=== PATIENT | male | born 1950 | race Caucasian/White ===

== ENCOUNTER 2025-06-11 10:10 | Outpatient (OUT) | payer MEDICARE, SELFPAY ==
--- OUTSIDE RECORDS SUMMARY | 2025-06-03 10:00 | XMS_ITS ---
Author Organization [facility] [place] Address [address] [place] [address] Care Team Providers Care Money Room Teller Name Role Phone Taz Nelson Primary Care Provider [phone] Allergies Allergen (clinical drug ingredient) Drug/Non Drug Allergy documented on EMR Reaction Allergy Type Onset Date Status PenicillinUnknownDrug AllergyActive REASON FOR VISIT WATER MANGLE TENDER-NO MEDS Medications Medication SIG (Take, Route, Frequency, Duration) Notes Start Date End Date Status valACYclovir HCl 1 GM Oral; Duration: 14 Days ActivevalACYclovir HCl 1 GMTAKE ONE TABLET BY MOUTH THREE TIMES A DAY FOR 14 DAYS Oral; Duration: 14 DaysActiveBrimonidine Tartrate 0.2 %Ophthalmic; Duration: 75 QgjoGhvogvCpdujzeh-Zyuthqpgd-Yqsykook 3.5-67983-2.1Ophthalmic; Duration: 50 DaysActiveRocklatan 0.02-0.005 %PLACE 1 DROP INTO LEFT EYE EVERYDAY AT BEDTIME DIRECTED Ophthalmic; Duration: 75 DaysActive Social History Tobacco Use: Social History Observation Description Date Details (start date - stop date) Former Smoker NA - NA Tobacco Control (Standard) Question Answer Notes Tobacco use: Former smoker How long has it been since you last smoked?Greater than 10 yearsAUDIT-C (Standard) Question Answer Notes Did you have a drink containing alcohol in the p ast year? No Efhcjw9TxtdwvrmbtcmqzYndhonyb Problems Problem Type SNOMED Code ICD Code Onset Dates Problem Status W/U Status Risk Notes Problem Glaucoma (04431073) Glaucoma (H40.9) ActiveconfirmedProblemHerpes infection (55499428)Herpes infection (B00.9)Active confirmed Vital Signs Weight 157.0 lbs 06/03/2025 Height 68 in 06/03/2025 Blood pressure systolic 130 mm Hg 06/03/20 25 Blood pressure diastolic 80 mm Hg 025 BMI 23.87 kg/m2 06/03/2025 Encounters Encounter Location Date Provider Diagnosis [facility] [address] [facility] [place] [address] 06/03/2025 Taz Nelson Herpes infection B00 .9 Assessments Encounter Date Diagnosis (ICD Code) Assessment Notes Treatment Notes Treatment Clinical Notes Section Notes 06/03/2025 Herpes infection (ICD-10 - B00.9 ) Plan Of Treatment Pending Test Test Name Order Date HEMOGLOBIN A1C (GLYCO) 06/03/2025 LIPID PANEL (CHOL/TRIG/HDL/LDL) 06/03/20 URIC ACID 06/03/2025 THYROID PANEL (T4/TSH/FREE T3) PSA, SCREENING 06/03/2025 CMP (COMP MET [place]) w/eGFR CKD-EPI 2024 CBC WITH DIFF 06/03/2025 Progress Notes * ROSA MARIA LEVYB:1950 (75 yo M)Acc No.[id number]:06/03/2025 New Patient Patient: ALEKSEY DUNHAM :?Jason Nelson ([facility]), MDDOB:1950???Age: 75 Y???Sex:MaleDate:06/03/2025Phone:[phone]:[address], [address], [place], [place]Zrmlq In:03:00 PM ESTCheck Out:03:30 PM EST Subjective: * Chief Complaints: * N P-NO MEDS * HPI: ???General:? no insomnina doing well overall Possibel gluten intolerance. * ROS: ???EENT:?hearing changes?denies.?visual changes?denies. non-healing mouth sores?denies.?swollen glands or neck lumps?denies.?hoarseness?denies.?sore throat?denies.?difficulty swallowing?denies.?nose bleeds?denies.?nasal congestion?denies.?ear ache?denies.?ear discharge denies.?ringing in ears?denies.?light sensitivity?denies.?eye pain?denies.?blurring?denies.?eye irritation?denies.?double vision?denies. vision loss?denies.?General/Constitutional:?Sweats:?Denies.?Fatigue?denies.?Sleep proble ms?denies.?Anorexia?denies.?Malaise?denies.?Weight loss?denies. Fatigue or Weakness?denies.?Fever or Chills?denies.?Cardiovascular:?Shortness of Breath w/lying flat?denies.?Lightheadedne ss/dizziness?denies.?Chest tightness/ heavy pressure?denies.?Swelling of legs, a nkles, or feet?denies.?Waking up with shortness of breath?denies.?Chest pain&#16 0;denies.?Palpitations?denies.?Weight gain?denies.?Respiratory:?Chronic or frequent cough?denies.?Coughing up blood&#1 60;denies.?Difficulty breathing?denies.?Productive cough?denies.?Snoring&#1 60;denies.?Shortness of breath that awakens from sleep (PND)?denies.?Chest pain? denies.?Sputum production?denies.?Wheezing?denies.?Musculoskeletal:?Joint pain?denies.?Joint Fluid?denies.?Backpain?denies.?Knee pain?denies.?Neck pain?denies.?Joint Stiffness?denies.?Muscle cramps?denies.?Weakness of muscles?denies.?Arthritis?denies.?Muscle aches?denies.?Pain in shoulder(s)?denies.?Swollen joints?denies.? * Active Problem List H40.9 Glaucoma Modified On:06/03/2025W/U Status:fqpnlesvxZ79.9Herpes infection Modified On:06/03/2025W/U Status:confirmed * Medical History: * Surgical History: C olonoscopy- Polyp Removal * Hospitalization/Major Diagno stic Procedure: D enies Past Hospitalization * Family History: F ather: , Prostate Cancer, Ulcers. M other: , Dementia. * Social History: ???Tobacco Use:?Tobacco Control (Standard)?Tobacco use:?Former smoker ?How long has it been since you last smoked? Greater than 10 years ???Drug/Alcohol:?AUDIT-C (Standard)?Did you have a drink containing alcohol in the past year??No ?Points?0 ?Interpretation?Negative * Medications: T akingBrimonidine Tartrate 0.2 % Solution Ophthalmic Rovfcghu-Entsufbvw-Eoymvfzx 3.5-68410-2.1 Suspension Ophthalmic Rocklatan(Netarsudil-Latanoprost) 0.02-0.005 % Solution PLACE 1 DROP INTO LEFT EYE EVERYDAY AT BEDTIME DIRECTED Ophthalmic valACYclovir HCl 1 GM Tablet Oral valACYclovir HCl 1 GM Tablet TAKE ONE TABLET BY MOUTH THREE TIMES A DAY FOR 14 DAYS Oral Medication List reviewed and reconciled with the patientTaking Brimonidine Tartrate 0.2 % Solution Ophthalmic Taking Gceqdzxr-Iykauprpu-Rauazfic 3.5-55467-7.1 Suspension Ophthalmic Taking Rocklatan(Netarsudil-Latanoprost) 0.02-0.005 % Solution PLACE 1 DROP INTO LEFT EYE EVERYDAY AT BEDTIME DIRECTED Ophthalmic Taking valACYclovir HCl 1 GM Tablet Oral Taking valACYclovir HCl 1 GM Tablet TAKE ONE TABLET BY MOUTH THREE TIMES A DAY FOR 14 DAYS Oral Medication List reviewed and reconciled with the patient * Allergies: P travis[Allergies Verified] Objective: * Vitals: W t:157.0lbs, Ht: 68 in, BP:130/80mm Hg, BMI:23.87Index, Ht-cm: 172.72 cm, Wt-k.21 kg. * Examination: ???Physical Exam: ?GENERAL:?well developed, well nourished, in no acute distress.?HEAD:?normocephalic/atraumatic.?EYES:?pupils equal, round and reactive to light, conjunctivae and sclerae normal.?EARS:?no deformity or lesion of external ear, canals and TM appear normal bilaterally, TM's intact, not inflamed with normal light reflex, hearing grossly normal to conversational speech.?NOSE:?no deformity, discharge, inflammation, or lesions. ?MOUTH:?mucous membranes moist, normal oropharynx and posterior pharynx without lesions or exudates, tongue normal, dentition normal.?NECK:?neck supple, no masses or palpable cervical nodes, trachea midline, thyroid without nodules, masses, tenderness, or enlargement.?CHEST:?no chest wall deformity, no chest wall tenderness. ?LUNGS:?normal respiratory effort and clear to auscultation, no wheezes, rales, or rhonchi, good air exchange.?CARDIO:?regular rate and rhythm, normal S1 and S2, nor murmur, rub, or gallop.?PULSES:?normal capillary refill.?ABDOMEN:?soft, non-distended, non-tender, no masses.?MUSCULOSKELETAL:?no deformity or scoliosis noted, normal range of motion, joints normal, no erythema, edema, effusion, or ecchymosis.?EXTREMITY:?no clubbing, cyanosis, edema, or deformity withnormal ROM in both upper and lower bilateral extremities.?NEUROLOGIC:?grossly normal.?SKIN:?no rashes, ulcerations, or suspicious lesions.?LYMPH NODES:?no cervical adenopathy, nodes normal.?MENTAL STATUS:?alert and oriented x3, normal mood and affect.? Assessment: * Assessment: 1.?Herpes infection - B00.9 (Primary)??? Plan: * Treatment: ?LAB: HEMOGLOBIN A1C (GLYCO) ?LAB: LIPID PANEL (CHOL/TRIG/HDL/LDL) ?LAB: URIC ACID ?LAB: THYROID PANEL (T4/TSH/FREE T3) ?LAB: PSA, SCREENING ?LAB: CMP (COMP MET [place]) w/eGFR CKD-EPI ?LAB: CBC WITH DIFF * Procedure Codes: * * Sign off status: CompletedVisit Status:?CHK (Check Out) true * Provider: Radha Nelson ([facility])MD Date: 1 08/03/2024 Generated for Printing/[employer]itting on:?06/11/2025 10:14 AM EST History and Physical Notes * HPI (History of Present Illness) CategorySub-CategoryDetailNotesCategory NotesGeneral no insomnina doing well overall Possibel gluten intolerance Examination CategorySub-CategoryDetailNotesCategory NotesPhysical ExamGENERAL:well developed, well nourished, in no acute distressHEAD:normocephalic/atraumatic EYES:pupils equal, round and reactive to light, conjunctivae and sclerae normal EARS:no deformity or lesion of external ear, canals and TM appear normal bilaterally, TM's intact, not inflamed with normal light reflex, hearing grossly normal to conversational speechNOSE:no deformity, discharge, inflammation, or lesionsMOUTH:mucous membranes moist, normal oropharynx and posterior pharynx without lesions or exudates, tonguenormal, dentition normalNECK:neck supple, no masses or palpable cervical nodes, trachea midline, thyroid without nodules, masses, tenderness, or enlargementCHEST:no chest wall deformity, no chest wall tendernessLUNGS:normal respiratory effort and clear to auscultation, no wheezes, rales, or rhonchi, good air exchangeCARDIO:regular rate and rhythm, normal S1 and S2, nor murmur, rub, or gallopPULSES:normal capillary refillABDOMEN:soft, non-distended, non-tender, no massesRECTAL:MUSCULOSKELETAL:no deformity or scoliosis noted, normal range of motion, joints normal, no erythema, edema, effusion, or ecchymosisEXTREMITY:no clubbing, cyanosis, edema, or deformity with normal ROM in both upper and lower bilateral extremitiesNEUROLOGIC:grossly normalSKIN:no rashes, ulcerations, or suspicious lesionsLYMPH NODES:no cervical adenopathy, nodes normalMENTAL STATUS:alert and oriented x3, normal mood and affect
--- OUTSIDE RECORDS SUMMARY | 2025-06-11 10:15 | XMS_ITS | Clinical Summary ---
Author Organization [facility] Address [address] [place], [place] [id number] Care Team Providers Care Office Clerk Routine Name Role Phone Unavailable Primary Care Provider Unavailabl e Allergies Active AllergyReactionsCriticalityNoted DateCommentsPenicillin VUnknown 03/15/2021 Medications MedicationSigDispense QuantityRefillsLast FilledStart DateEnd DateStatus dorzolamide-timolol (COSOPT) 22.3-6.8 mg/mL ophthalmic solution Use 1 drop in the left eye two times a day.Active brimonidine (ALPHAGAN) 0.2 % ophthalmic solution Use 1 drop in the left eye two times a day.Active ROCKLATAN 0.02-0.005 % ophthalmic solution Use 1 drop in the left eye daily at bedtime.5Active coenzyme Q10 (COENZYME Q-10) 100 mg cap capsule Take 100 mg by mouth once daily.Active ubidecarenone (COENZYME Q10, BULK, MISC) Take 1 tablet by mouth once daily.Active XYECVZHQ-SBAZYJIND-ELRYRCQL 3.5 MG/ML-10,000 UNIT/ML-0.1% EYE DROPS Use 1 drop in the left eye four times daily. 5 mL 5Active sodium chloride (BRITTANY 128) 5 % ophthalmic solution Use 1 drop in both eyes four times daily. 30 mL 5Active sodium chloride (BRITTANY 128) 5 % ophthalmic ointment Use 1 application in both eyes daily at bedtime. 3.5 g 5Active Active Problems No known active problems Encounters DateTypeDepartmentCare CemxUrpdcchghaf12/18/2025 8:30 AM EDTOffice Visit OPHT Ophthalmology [address] [place] [id number] Savanah Lara MD Idiopathic corneal edema, bilateral (Primary Dx); Stromal keratitis, left04/07/2025 3:52 AM EDT - 04/07/2025 1:[facility] [address] [place], [place] [id number] Dale Kemp MD Bhatt, Saurin, MD left eye concern Discharge Disposition: Home04/07/2025Ophth Exam Ophthalmology [address] [place] [id number] Gina Sepulveda MD 04/06/2025Travelfrom Last 3 Months Social History Tobacco UseTypesPacks/DayYears UsedDateSmoking Tobacco: NeverSmokeless Tobacco: Never Tobacco Cessation:Counseling Given: Not Answered Alcohol UseStandard Drinks/WeekCommentsNever0 (1 standard drink = 0.6 oz pure alcohol)AUDIT-CAnswerDate RecordedQ1: How often do you have a drink containing alcohol?Never04/07/2025Q2: How many drinks containing alcohol do you have on a typical day when you are drinking?Patient does not drink04/07/2025Q3: How often do you have six or more drinks on one occasion?Never04/07/2025rea Deprivation IndexAnswerDate RecordedNational Score (1-100), lower number is lower risk61 04/07/2025State Score (1-10), lower number is lower cszl701Data from: https://www.neighborhoodatlas.medicine.[facility].edu/. Last address used for sphz[address]id[address]04/07/2025Sex and Gender InformationValueDate RecordedSex Assigned at BirthNot on fileLegal IviCxsw5904/06/2025 6:22 PM EDTGender Identity Not on fileSexual OrientationNot on file Last Filed Vital Signs Vital SignReadingTime TakenCommentsBlood Lbsvtifj520/8904/07/2025 4:12 AM EDT Lhdlw906504/07/2025 4:12 AM GNZTedsagvrksa88.6 ??C (97.9 ??F)04/07/2025 12:16 AM EDTRespiratory Unmt139504/07/2025 4:12 AM EDTOxygen Gswpgyvtrg753%04/07/2025 4:12 AM EDTInhaled Oxygen Concentration--Nzurct19.1 kg (170 lb)04/07/2025 12:16 AM EDTHeight--Body Mass Index-- Plan of Treatment Health MaintenanceDue DateLast DoneCommentsAnxiety Tfamicdkd89/04/1967Depression Qawmvzylg80/04/1967Hepatitis C Lnpmflvcl34/04/1967Diabetes Xnttkmesf44/04/1994 Shingrix Vaccine (1 of 2)1999Advance Directive Wcygqpdinx59/01/2025 Medicare Advantage Annual Wellness Visit5Covid-19 Vaccine ( season)503/11/2023, 03/21/2023, 01/01/2021, Additional history exists DTaP,Tdap,Td Vaccine (2 - Td or Tdap)neumococcal Vaccine: 50+Mzdovgqzo13/25/2020, 04/01/2016RSV GaocygsGbicmzvge94/25/2023Influenza ZtljxfzJvbmbahgz73/18/2025, 03/08/2024, 03/29/2023, Additional history exists Procedures Procedure NamePriorityDate/TimeAssociated DiagnosisCommentsSLIT LAMP PHOTOS OU (BOTH EYES)Bfrkqea8904/07/2025 10:07 AM EDT Stromal keratitis, left BSCAN OU (BOTH EYES)Qseiuto4004/07/2025 9:34 AM EDT Stromal keratitis, left HERPES SIMPLEX TYPE 1 AND 2 GIWFXT9904/07/2025 8:06 AM EDT from Last 3 Months Results * SLIT LAMP PHOTOS OU (BOTH EYES) (04/07/2025 10:07 AM EDT)Anatomical Region LateralityModalityOther Narrative 04/07/2025 5:59 PM EDT Date of Procedure 04/07/2025. School Nurse Information Supervisor Rubber Covering: Michael. Start time: 9:36 AM. Stop time: 10:07 AM. Notes Bilateral corneal edema, inferonasal marginal infiltrate with deep KNV in left eye Authorizing ProviderResult TypeResult StatusShmartha Lara MDOPHTHALMOLOGYFinal Result * BSCAN OU (BOTH EYES) (04/07/2025 9:34 AM EDT)Anatomical RegionLaterality ModalityOther Narrative 04/07/2025 5:48 PM EDT Date of Procedure 04/07/2025. School Nurse Information EDWIN Conway 04/07/2025 9:32 AM . Notes B Scan OU Moderate to dense clumped mobile opacities with PVD OU Moderate to dense subhyaloid opacities OD<OS No retina or choroidal detachment OU Mild optic nerve cupping OU Authorizing ProviderResult TypeResult Sara Lara MDOPHTHALMOLOGYFinal Result * HERPES SIMPLEX TYPE 1 AND 2 IG (04/07/2025 8:06 AM EDT)ComponentValueRef Range Test MethodAnalysis TimePerformed AtPathologist SignatureHSV IgG 1 Qualitative YyyxdslvUgnsphdv37/18/2025 11:32 AM [facility] Comment:No evidence of past history of HSV-1 infection. Negative result cannot exclude HSV-1 infection if the specimen collected 3-4 weeks after a primary episode of HSV-1 infection. Early institution of antiviral agents may delay or abrogate specific humoral response.HSV IgG 2 QualitativeNegativeNegative 04/07/2025 11:32 AM [facility] LABComment:No evidence of past history of HSV-2 infection. Negative result cannot exclude HSV-2 infection if the specimen collected 4-6 weeks after a primary episode of HSV-2 infection. Early institution of antiviral agents may delay or abrogate specific humoral response.Specimen (Source)Anatomical Location / Laterality Collection Method / VolumeCollection TimeReceived TimeBloodBLOOD SPECIMEN / UnknownVenipuncture / Tjsiftp7904/07/2025 8:06 AM EDT04/07/2025 8:22 AM EDT Narrative Authorizing ProviderResult TypeResult Evelyn David MDLABORATORYFinal ResultPerforming OrganizationAddressCity/State/ZIP CodePhone Number [facility] [address] [address], [place] from Last 3 Months Insurance
--- OUTSIDE RECORDS SUMMARY | 2025-06-11 10:15 | XMS_ITS | Patient Health Record ---
Author Organization [facility] [place] Address [address] [place] [address] Care Team Providers Care Sodium Methylate Operator Name Role Phone Taz Nelson Primary Care Provider Allergies Allergen (clinical drug ingredient) Drug/Non Drug Allergy documented on EMR Reaction Allergy Type Onset Date Status PenicillinUnknownDrug AllergyActive Reason For Referral No Information Medications Medication SIG (Take, Route, Frequency, Duration) Notes Start Date End Date Status valACYclovir HCl 1 GM Oral; Duration: 14 Days ActivevalACYclovir HCl 1 GMTAKE ONE TABLET BY MOUTH THREE TIMES A DAY FOR 14 DAYS Oral; Duration: 14 DaysActiveBrimonidine Tartrate 0.2 %Ophthalmic; Duration: 75 HyijOmowhmGgaeyiqa-Dnfuexrls-Kwpufgza 3.5-86166-3.1Ophthalmic; Duration: 50 DaysActiveRocklatan 0.02-0.005 %PLACE 1 DROP [...] alcohol in the p ast year? No Yhwpyp7VtotywzwjcznjgRczpjecu Problems Problem Type SNOMED Code ICD Code Onset Dates Problem Status W/U Status Risk Notes Problem Glaucoma (34875606) Glaucoma (H40.9) ActiveconfirmedProblemHerpes infection (56347284)Herpes infection (B00.9)Active confirmed Vital Signs Blood pressure diastolic 80 mm Hg 06/03/2025 Isijai80 in06/03/2025lood pressure umwzisnh003 mm Hg11/14/5264Iamdrl849.0 lbs 06/03/2025BMI23.87 kg/m206/03/2025 Encounters Encounter Location Date Provider Diagnosis [facility] [address] [place] [address] 06/03/2025 Taz Nelson Herpes infection B00 .9 Assessments Encounter Date Diagnosis (ICD Code) Assessment Notes Treatment Notes Treatment Clinical Notes Section Notes 06/03/2025 Herpes infection (ICD-10 - B00.9 ) Plan Of Treatment Pending Test Test Name Order Date HEMOGLOBIN A1C (GLYCO) 06/03/2025 LIPID PANEL (CHOL/TRIG/HDL/LDL) 06/03/20 25 URIC ACID 06/03/2025 THYROID PANEL (T4/TSH/FREE T3) 5 PSA, SCREENING 06/03/2025 CMP (COMP MET [place]) w/eGFR CKD-EPI 2024 CBC WITH DIFF 06/03/2025 Insurance Providers Payer Name Payer Address Payer Phone Subscriber Number Group Number Insured Name Patient Relationship to Insured Coverage Start Date Coverage End Date [employer] MEDICARE ADV PLAN [address] [address] [place] [phone] [id number] Miya LEVY - patient is the insured Medical (General) History Medical History History ICD Code Glaucoma H40.9 Surgical History Surgery Date(Month/Year) Colonoscopy- Polyp Removal
--- OUTSIDE RECORDS SUMMARY | 2025-06-11 10:15 | XMS_ITS | Clinical Summary ---
Author Organization [facility] Address [address] [place] [address] Care Team Providers Care Curing Room Supervisor Name Role Phone Phys, Self-Refer Or No Pcp/Referring Primary Car e Provider Unavailable Wesly Silva MD Unavailable [phone] Allergies Active AllergyReactionsCriticalityNoted DateCommentsPenicillin VUnknown 03/15/2021 Medications MedicationSigDispense QuantityRefillsLast FilledStart DateEnd DateStatus coenzyme Q10 100 mg capsule Take 100 mg by mouth once daily.Active jqfyzmvrapep-ayv-dh-co Q10 (aquADEKs) 100-350-5 mcg-mcg-mg chewable tablet Chew 1 tablet and swallow once daily.Active dorzolamide-timoloL (COSOPT) 22.3-6.8 mg/mL ophthalmic solution Place 1 drop in the right eye three times daily. 10 mL ctive Additional Information Patient not taking.Reported on 04/18/2023 RHOPRESSA 0.02 % ophthalmic soution Place 1 drop in the right eye at bedtime. 5 mL ctive Additional Information Patient not taking.Reported on 04/18/2023 sodium chloride (BRITTANY 128) 2 % ophthalmic solution Place 1 drop in the left eye three times daily. 15 mL ctive prednisoLONE acetate (PRED FORTE) 1 % ophthalmic suspension Place 1 drop in the right eye four times daily. 10 mL ctive ofloxacin (OCUFLOX) 0.3 % ophthalmic solution Place 1 drop in the right eye four times daily. 5 mL ctive ofloxacin (OCUFLOX) 0.3 % ophthalmic solution Place 1 drop in the right eye four times daily. 5 mL 109/ctive atropine (ISOPTO ATROPINE) 1 % ophthalmic solution Place 1 drop in the right eye two times daily. 5 mL 110/ctive latanoprost (XALATAN) 0.005 % ophthalmic solution Place 1 drop in the left eye at bedtime. 7.5 mL 310/ctive prednisoLONE acetate (PRED FORTE) 1 % ophthalmic suspension Place 1 drop in the left eye four times daily. 10 mL 310/ctive brimonidine (ALPHAGAN) 0.2 % ophthalmic solution Place 1 drop in the left eye three times daily. 30 mL 310/ctive Active Problems ProblemNoted DateDiagnosed ZlosChewfpwl35/13/2023 Family History Medical HistoryRelationNameCommentsCancerFatherAlzheimer's diseaseMother CataractsMotherThyroid diseaseMotherAnesth problemsNeg HxDeep vein thrombosisNeg HxPulmonary embolismNeg HxRelationNameStatusCommentsFatherMother Social History Tobacco UseTypesPacks/DayYears UsedDateSmoking Tobacco: YkxqqcBjvwskjkcp7076062 - 1980Smokeless Tobacco: Never Tobacco Cessation:Counseling Given: Not Answered Alcohol UseStandard Drinks/WeekCommentsNot Currently0 (1 standard drink = 0.6 oz pure alcohol)Sex and Gender InformationValueDate RecordedSex Assigned at Not on fileLegal DfwOhna90/01/2022 4:15 PM EDTGender IdentityNot on fileSexual OrientationNot on file Last Filed Vital Signs Vital SignReadingTime TakenCommentsBlood Eohpckcv332/5609 12:20 PM EDT Lmund203404/17/2023 12:20 PM CFCKutlyneoctt11.5 ??C (97.7 ??F)04/17/2023 11:51 AM EDTRespiratory Msmp407604/17/2023 12:20 PM EDTOxygen Xokpbmarrl52%04/17/2023 12:20 PM EDTInhaled Oxygen Concentration--Fcrwfo40.8 kg (165 lb)04/17/2023 9:21 AM EDT Krgajf393.6 cm (5' 6 )04/17/2023 9:21 AM EDTBody Mass Index26.6309/ 9:21 AM EDT Plan of Treatment Health MaintenanceDue DateLast DoneCommentsHepatitis C Jebhisidl1950 Pneumococcal Vaccines 50years + (1 of 1 - PCV)1999Zoster Recombinant Vaccines (1 of 2)1999Respiratory Syncytial Virus (RSV) or ages 60 years and older (1 - 1-dose 75+ series)2024OVID-19 Vaccine (1 - 2024- season)2025Influenza Vaccine (#1)2025DTaP,Tdap,and Td Vaccines (2 - Td or Tdap)espiratory Syncytial Virus (RSV) ages 0 thru 19 monthsAged OutNo longer eligible based on patient's age to complete this topic Medical Devices ImplantedTypeAreaManufacturerDevice IdentifierShelf Expiration DateModel / Serial / LotGraft, Allograft Scleral Patch Tutoplast .5 X .8 Cm - [id number] Implanted:Qty: 1 on 04/17/2023 by Esthela Middleton MD at [facility] OphthyRight: EyeRTI SURGICAL M01//[id number] / [id number] / Implant, Ahmed Clearpath Glaucoma Drainage 250mm - [id number] Implanted:Qty: 1 on 04/17/2023 [facility] EyeNEW WORLD M04//[id number] / [id number] / [id number] Insurance Care Teams Team MemberRelationshipSpecialtyStart DateEnd Date Phys, Self-Refer Or No Pcp/Referring PCP - Eeiolcc80/7/22 Wesly Silva MD [address] [place] [address] [address] [place] [address] Referring NrlzlreyiBzoabqevhayue87/7/22
[2025-06-11 10:41] LABS: Hematocrit 43.6 % (42.0-54.0); Hemoglobin 14.8 g/dL (14.0-18.0); Immature Granulocytes Abs Auto 0.01 10^3/uL (0.00-0.03); Immature Granulocytes Pct Auto 0.2 % (0.0-0.5); Lymphocytes Absolute Auto 1.4 10^3/uL (1.2-3.8); Mean Corpuscular HGB Conc 33.9 g/dL (29.9-35.2); Mean Corpuscular Hemoglobin 32.5 pg (25.9-34.0); Mean Corpuscular Volume 95.6 fL (80.0-94.0); Platelet Count 165 10^3/uL (150-450); Red Blood Count 4.56 10^6/uL (4.70-6.10); White Blood Count 4.1 10^3/uL (4.0-11.0)
[2025-06-11 11:39] LABS: Alanine Aminotransferase 18 U/L (16-63); Albumin Globulin Ratio 1.1; Albumin Level 4.0 g/dL (3.4-5.0); Alkaline Phosphatase 113 U/L (46-116); Anion Gap 10.6; Aspartate Amino Transferase 19 U/L (15-37); Blood Urea Nitrogen 17.0 mg/dL (7.0-18.0); Calcium 9.1 mg/dL (8.5-10.1); Carbon Dioxide 30.4 mmol/L (21.0-32.0); Chloride 104 mmol/L (98-107); Cholesterol 144 mg/dL (<=200); Estimated GFR (African America >60 (>=60 mL/min/1.73m^2); Estimated GFR (Non-African Ame >60 (>=60 mL/min/1.73m^2); Free T3 1.94 pg/mL (2.18-3.98); Globulin 3.6 g/dL; Glucose 89 mg/dL (74-106); HDL Cholesterol 44 mg/dL (40-60); Potassium 4.0 mmol/L (3.5-5.1); Sodium 141 mmol/L (136-145); Thyroid Stimulating Hormone 6.390 uIU/mL (0.358-3.740); Total Protein 7.6 g/dL (6.4-8.2); Triglycerides 34 mg/dL (<=150); Uric Acid 4.3 mg/dL (3.5-7.2); VLDL CHOLESTEROL 6.8 mg/dL
== END 2025-06-11 10:11 | disposition home or self-care (01) ==
LOC: LAB 10:10
PROVIDERS: PCP Family Medicine; Visit Provider Family Medicine
DX: E78.5 Hyperlipidemia, unspecified (principal); Z12.5 Encounter for screening for malignant neoplasm of prostate; R73.09 Other abnormal glucose; M25.50 Pain in unspecified joint; E03.9 Hypothyroidism, unspecified; I10 Essential (primary) hypertension; D64.9 Anemia, unspecified
CPT/HCPCS: 36415; 80053; 80061; 83036; 84436; 84443; 84481; 84550; 85025; G0103

== ENCOUNTER 2025-06-28 12:57 | Outpatient (RCR) | payer MEDICARE, SELFPAY | END 2025-07-20 23:59 | disposition home or self-care (01) | LOC: HEMC 12:57 | PROVIDERS: PCP Family Medicine; Visit Provider Internal Medicine Hematology & Oncology | DX: C61 Malignant neoplasm of prostate (principal); M19.90 Unspecified osteoarthritis, unspecified site | CPT/HCPCS: G0463 ==

== ENCOUNTER 2025-07-04 15:52 | Outpatient (OUT) | payer MEDICARE, SELFPAY ==
--- OUTSIDE RECORDS SUMMARY | 2025-07-04 16:00 | XMS_ITS | Clinical Summary ---
Author Organization [facility] Address [address] [place], [place] [address] Care Team Providers Care Popcorn Attendant Name Role Phone Unavailable Primary Care Provider [...] Take 1 tablet by mouth once daily.Active WLBAVPHS-YAQGSYRAJ-PTQODYLG 3.5 MG/ML-10,000 UNIT/ML-0.1% EYE DROPS Use 1 [...] Problems No known active problems Encounters DateTypeDepartmentCare LqxrLzjvwztmafp07/18/2025 8:30 AM EDTOffice Visit OPHT Ophthalmology [address] [id number] Savanah Lara MD Idiopathic corneal edema, bilateral (Primary Dx); Stromal keratitis, left04/07/2025 3:52 AM EDT - 04/07/2025 1:[address] [facility] [address] [place], [place] [id number] Dale Kemp MD Bhatt, Saurin, MD left eye concern Discharge Disposition: Home04/07/2025Ophth Exam Ophthalmology [address] [id number] Gina Sepulveda MD 04/06/2025Travelfrom Last 3 Months [...] 04/07/2025State Score (1-10), lower number is lower oxlg604Data from: https://www.neighborhoodatlas.medicine.[facility].edu/. Last address used for bl[address]04/07/2025Sex and Gender InformationValueDate RecordedSex Assigned at BirthNot on fileLegal YmxTzns3804/06/2025 6:22 PM EDTGender Identity Not on fileSexual OrientationNot on file Last Filed Vital Signs Vital SignReadingTime TakenCommentsBlood Mxqbfsbb249/8904/07/2025 4:12 AM EDT Vmnvi090604/07/2025 4:12 AM XDPHjynngddqbb98.6 ??C (97.9 ??F)04/07/2025 12:16 AM EDTRespiratory Xoug808604/07/2025 4:12 AM EDTOxygen Uzggbpmzdg350%04/07/2025 4:12 AM EDTInhaled Oxygen Concentration--Dmlwtz78.1 kg (170 lb)04/07/2025 12:16 AM EDTHeight--Body Mass Index-- Plan of Treatment Health MaintenanceDue DateLast DoneCommentsAnxiety Rzxubybey59/04/1967Depression Jvjwxhypg96/04/1967Hepatitis C Sglvhjmkn36/04/1967Diabetes Pvqopaxry59/04/1994 Shingrix Vaccine (1 of 2)1999Advance Directive Wdvjmpefxp69/01/2025 Medicare Advantage Annual Wellness Visit5Covid-19 Vaccine ( season)503/11/2023, 03/21/2023, 01/01/2021, Additional history exists DTaP,Tdap,Td Vaccine (2 - Td or Tdap)neumococcal Vaccine: 50+Xpllcjuzq13/25/2020, 04/01/2016RSV YtfieygVfedurvfq07/25/2023Influenza HbjccmqGdbxpihmw60/18/2025, 03/08/2024, 03/29/2023, Additional history exists Procedures Procedure NamePriorityDate/TimeAssociated DiagnosisCommentsSLIT LAMP PHOTOS OU (BOTH EYES)Myxjmxo6404/07/2025 10:07 AM EDT Stromal keratitis, left BSCAN OU (BOTH EYES)Prjcaow0204/07/2025 9:34 AM EDT Stromal keratitis, 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 Marine Service Operator Information [employer]: Michael. Start time: 9:36 AM. Stop time: 10:07 AM. Notes Bilateral corneal edema, inferonasal marginal infiltrate with deep KNV in left eye Authorizing ProviderResult TypeResult StatusShmartha Lara MDOPHTHALMOLOGYFinal Result * BSCAN OU (BOTH EYES) (04/07/2025 9:34 AM EDT)Anatomical RegionLaterality ModalityOther Narrative 04/07/2025 5:48 PM EDT Date of Procedure 04/07/2025. Marine Service Operator Information EDWIN Conway 04/07/2025 9:32 AM . [...] MethodAnalysis TimePerformed AtPathologist SignatureHSV IgG 1 Qualitative KzskzipvPbgvdmgc38/18/2025 11:32 AM [facility] Comment:No evidence of past history of HSV-1 infection. Negative result cannot exclude HSV-1 infection if the specimen collected 3-4 weeks after a primary episode of HSV-1 infection. Early institution of antiviral agents may delay or abrogate specific humoral response.HSV IgG 2 QualitativeNegativeNegative 04/07/2025 11:32 AM [facility] LAB[facility]:No evidence of past history of HSV-2 infection. Negative result cannot exclude HSV-2 infection if the specimen collected 4-6 weeks after a primary episode of HSV-2 infection. Early institution of antiviral agents may delay or abrogate specific humoral response.Specimen (Source)Anatomical Location / Laterality Collection Method / VolumeCollection TimeReceived TimeBloodBLOOD SPECIMEN / UnknownVenipuncture / Iubywad9604/07/2025 8:06 AM EDT04/07/2025 8:22 AM EDT Narrative Authorizing ProviderResult TypeResult Evelyn David MDLABORATORYFinal ResultPerforming OrganizationAddressCity/State/ZIP CodePhone Number [facility] [address] [address], [place] from Last 3 Months Insurance
--- OUTSIDE RECORDS SUMMARY | 2025-07-04 16:00 | XMS_ITS | Patient Health Record ---
Author Organization [facility] in [place] Address [address] [place] [address] Care Team Providers Care Chemistry Technician Name Role Phone Taz Nelson Primary Care Provider Allergies Allergen (clinical drug ingredient) Drug/Non Drug Allergy documented on EMR Reaction Allergy Type Onset Date Status PenicillinUnknownDrug AllergyActive Results Component Value Reference Range Notes CBC AUTO DIFF Reviewed date:06/11/2025 08:47:26 PM Interpretation: Performing Lab: Notes/Report: [facility] , White Blood Count 4.1 4.0-11.0 10 3/uL Red Blood Count4.564.70-6.10 10 6/jZBmaxgkrpaj91.814.0-18.0 g/tZXgkgfrhymr66.6 42.0-54.0 %Mean Corpuscular Jnvprq57.680.0-94.0 fLMean Corpuscular Hemoglobin 32.525.9-34.0 pgMean Corpuscular HGB Conc33.929.9-35.2 g/dLRed Cell Distribution Width14.611.0-15.0 %Platelet Pbxce111493-134 10 3/uLMean Platelet Volume9.39.5- 13.5 fLNeutrophils Percent Auto53.743.0-75.0 %Lymphocytes Percent Auto34.420.5- 60.0 %Monocytes Percent Auto8.81.7-12.0 %Eosinophils Percent Auto2.20.9-7.0 % Basophils Percent Auto0.70.2-2.0 %Immature Granulocytes Pct Auto0.20.0-0.5 % Neutrophils Absolute Auto2.21.4-6.5 10 3/uLLymphocytes Absolute Auto1.41.2-3.8 10 3/uLMonocytes Absolute Auto0.40.3-0.8 10 3/uLEosinophils Absolute Auto0.10.0- 0.7 10 3/uLBasophils Absolute Auto0.00.0-0.1 10 3/uLImmature Granulocytes Abs Auto0.010.00-0.03 10 3/uLPerforming Lab:see noteML - [facility] FREE T3 Reviewed date:06/11/2025 08:47:26 PM Interpretation: Performing Lab: Notes/Report: [facility] ,Free T31.942.18-3.98 pg/mLPerforming Lab:[facility] GLYCOHEMOGLOBIN A1C Reviewed date:06/11/2025 08:47:26 PM Interpretation: Performing Lab: Notes/Report: [facility] ,Glycohemoglobin A1C5.34.5-6.2 % ADA RECOMMENDED LIMIT 4.0 - 6.0 ADA THERAPEUTIC TARGET < 7.0 ACTION SUGGESTED > 7.0 Estimated Average Lfogerq416Tbphxxvvme Lab:see note - [facility] LB LIPID PROFILE Reviewed date:06/11/2025 08:47:26 PM Interpretation: Performing Lab: Notes/Report: [facility] ,Gxipbcphffacn37<=150 mg/bUAxmdfvhblgf513<=200 mg/dLHDL Vajokhrewbq6202-55 mg/dL <40 mg/dl - HIGH CARDIOVASCULAR RISK > or =60 mg/dl - LOW CARDIOVASCULAR RISK LDL Cholesterol Tgpexpbevx45.2 130-159 mg/dl BORDERLINE HIGH >190 mg/dl VERY HIGH 100-129 mg/dl NEAR OR ABOVE OPTIMAL <100 mg/dl OPTIMAL 160-189 mg/dl HIGH VLDL CHOLESTEROL6.8Chol HDL Ratio3.3 3.3 - 4.4 LOW RISK >11.0 HIGH RISK 7.1 - 11.0 MODERATE RISK 4.4 - 7.1 AVERAGE RISK Performing Lab:see [facility] LBPROF 14(COMP METB) Reviewed date:06/11/2025 08:47:26 PM Interpretation: Performing Lab: Notes/Report: [facility] ,Rmvkri981091-511 mmol/LPotassium4.03.5-5.1 mmol/LYuutbhff72491-564 mmol/LCarbon Wkqdmiq92.421.0-32.0 mmol/LAnion Gap10.0Cqjmidb0499-654 mg/dLBlood Urea Nitrogen 17.07.0-18.0 mg/dLCreatinine0.750.70-1.30 mg/dLEstimated GFR ( Shu>60 >=60 mL/min/1.73m 2Estimated GFR (Non- Corinne>60>=60 mL/min/1.73m 2BUN Creatinine Ratio22.7Xqegxua4.18.5-10.1 mg/dLBilirubin Total0.90.2-1.0 mg/dL Aspartate Amino Zrnbwfkexkj3846-94 U/LAlanine Nlwlrxymctmnqdmv2178-91 U/L Alkaline Ubswcvncotu21422-863 U/LTotal Protein7.66.4-8.2 g/dLAlbumin Level4.0 3.4-5.0 g/dLGlobulin3.6Albumin Globulin Ratio1.1Performing Lab:see noteML - [facility] LBPSA SCREENING Reviewed date:06/11/2025 08:47:26 PM Interpretation: Performing Lab: Notes/Report: [facility] ,Prostate Specific Antigen Aaxl933.07<=4.00 ng/mLPerforming Lab:see noteML - [facility] LBT4 Reviewed date:06/11/2025 08:47:26 PM Interpretation: Performing Lab: Notes/Report: [facility] ,T4 Thyroxine6.404.50-12.10 ug/dLPerforming Lab:see noteML - [facility] LBTSH Reviewed date:06/11/2025 08:47:26 PM Interpretation: Performing Lab: Notes/Report: [facility] ,Thyroid Stimulating Hormone6.3900.358-3.740 uIU/mLPerforming Lab:see noteML - [facility] LBURIC ACID SERUM Reviewed date:06/11/2025 08:47:26 PM Interpretation: Performing Lab: Notes/Report: [facility] ,Uric Acid4.33.5-7.2 mg/dLPerforming Lab:see noteML - [facility] LB Reason For Referral Diagnosis 1 PSA elevation (R97.2 0) Referral Organization [facility] Referring Provider First Name Taz Referring Provider Last Name Omar Referring Provider Speciality [facility] icine Referred Provider Edvin Tierney Referred Provider Specialty Urology Referral Priority Routine Diagnosis 1 Prostate cancer (C61 ) Referral Organization [facility] Referring Provider First Name Taz Referring Provider Last Name Omar Referring Provider Special[facility] icine Referred Organization [facility] Referred Provider Yulissa Keita Referred Address [address],[place], [place],[address], Referred Provider Specialty Hematology/O ncology Referral Priority Routine Medications Medication SIG (Take, Route, Frequency, Duration) Notes Start Date End Date Status Brimonidine Tartrate 0.2 % Ophthalmic; Duration: 75 Days KfiscmZeaqpnjw-Binlfkhxr-Grngvwcd 3.5-10328-7.1Ophthalmic; Duration: 50 Days ActiveLevothyroxine Sodium 50 MCG1 tablet in the morning on an empty stomach Orally Once a day; Duration: 30 days5ActiveRocklatan 0.02-0.005 %PLACE 1 DROP INTO LEFT EYE EVERYDAY AT BEDTIME DIRECTED Ophthalmic; Duration: 75 DaysActivevalACYclovir HCl 1 GMTAKE ONE TABLET BY MOUTH THREE TIMES A DAY FOR 14 DAYS Oral; Duration: 14 DaysActivevalACYclovir HCl 1 GMOral; Duration: 14 Days Active Social History Tobacco Use: Social History Observation Description Date Details (start date - stop date) Former Smoker NA - NA Tobacco Control (Standard) Question Answer Notes Tobacco use: Former smoker How long has it been since you last smoked?Greater than 10 yearsAUDIT-C (Standard) Question Answer Notes Did you have a drink containing alcohol in the p ast year? No Ylruyh3LlwhbklmipfnsiDzpfqtid Problems Problem Type SNOMED Code ICD Code Onset Dates Problem Status W/U Status Risk Notes Problem Hypothyroidism (50469081) Hypothyroidism (E03.9) ActiveconfirmedProblemMalignant tumor of prostate (887085102)Prostate cancer (C61)ActiveconfirmedProblemGlaucoma (92223696)Glaucoma (H40.9)Activeconfirmed ProblemHerpes infection (26254648)Herpes infection (B00.9)Activeconfirmed Vital Signs Blood pressure diastolic 72 mm Hg 06/15/2025 Gumrui39 in06/15/2025lood pressure gcvucaxq240 mm Hg06/15/20255761Ejdsyr171.0 lbs 06/15/2025BMI24.33 kg/m206/15/2025 Encounters Encounter Location Date Provider Diagnosis [facility] [address] [place] [address] 06/11/2025 Taz Hoy Hypothyroidism E03.9 and PSA elevation R97.20 [facility] [address] [place] [address] 06/28/2025 Taz Hoy Prostate cancer C61 [address] [place] [address] 06/03/2025 Taz Hoy Herpes infection B00 .9 [address] [place] [address] 06/15/2025 Taz Hoy Prostate cancer C61 Assessments Encounter Date Diagnosis (ICD Code) Assessment Notes Treatment Notes Treatment Clinical Notes Section Notes 06/03/2025 Herpes infection (ICD-10 - B00.9 ) 06/15/2025Prostate cancer (ICD-10 - C61)06/11/2025Hypothyroidism (ICD-10 - E03.9)06/11/2025PSA elevation (ICD-10 - R97.20)06/28/2025Prostate cancer (ICD-10 - C61) Plan Of Treatment Pending Test Test Name Order Date HEMOGLOBIN A1C (GLYCO) 06/03/2025 LIPID PANEL (CHOL/TRIG/HDL/LDL) 06/03/20 25 URIC ACID 06/03/2025 PET/CT X98-SJXE (Pylarify) 06/28/[address] SKULL BASE MID THIGH 06/15/2025 THYROID PANEL (T4/TSH/FREE T3) THYROID PANEL (T4/TSH/FREE T3) PSA, SCREENING 06/03/2025 NM bone scan whole body 06/15/2025 CMP (COMP MET [place]) w/eGFR CKD-EPI 2024 CBC WITH DIFF 06/03/2025 Insurance Providers Payer Name Payer Address Payer Phone Subscriber Number Group Number Insured Name Patient Relationship to Insured Coverage Start Date Coverage End Date [employer] MEDICARE ADV PLAN [address] [address] [place] [phone] [id number] Miya LEVY - patient is the insured Medical (General) History Medical History History ICD Code Glaucoma H40.9 Surgical History Surgery Date(Month/Year) Colonoscopy- Polyp Removal
[2025-07-04 16:26] LABS: INR 1.04; Partial Thromboplastin Time 27.6 sec (22.3-36.2); Prothrombin Time 10.9 sec (9.0-11.6)
== END 2025-07-04 15:53 | disposition home or self-care (01) ==
LOC: LAB 15:54
PROVIDERS: PCP Family Medicine; Visit Provider Urology
DX: N40.2 Nodular prostate without lower urinary tract symptoms (principal); R97.20 Elevated prostate specific antigen [PSA]
CPT/HCPCS: 36415; 85610; 85730

== ENCOUNTER 2025-07-11 07:10 | Outpatient (OUT) | payer MEDICARE, SELFPAY ==
--- OUTSIDE RECORDS SUMMARY | 2025-06-28 11:21 | XMS_ITS ---
Author Organization [facility] in [place] Address [address] [place] [address] Care Team Providers Care Information Manager Name Role Phone Taz Nelson Primary Care Provider REASON FOR VISIT change PET scan Encounters Encounter Location Date Provider Diagnosis [facility] [address] [place] [address] 06/28/2025 Taz Nelson Prostate cancer C61 Assessments Encounter Date Diagnosis (ICD Code) Assessment Notes Treatment Notes Treatment Clinical Notes Section Notes 06/28/2025 Prostate cancer (ICD-10 - C61) Plan Of Treatment Pending Test Test Name Order Date PET/CT G26-BHYR (Pylarify) 06/28/2025 Progress Notes * PAOLO LEVY:1950 (75 yo M)Acc No.[id number]:06/28/2025 Patient:?ALEKSEY LEVY :1950???Age:75 Y???Sex:MalePhone:[phone] Address:[address] [place] [address], [address] Subjective: * Chief Complaints: * c hange PET scan * Medical History: * Surgical History: * Hospitalization/Major Diagno stic Procedure: * Medications: Objective: * Vitals: * Physical Examination: ??? Assessment: * Assessment: 1.?Prostate cancer - C61??? Plan: * Treatment: ?Imaging: PET/CT Q80-IPUI (Pylarify) * Procedure Codes: * true * Date:?Generated for Printing/Faxing/eTransmitting on:?07/11/2025 07:13 AM EST
--- OUTSIDE RECORDS SUMMARY | 2025-07-11 07:13 | XMS_ITS | Clinical Summary ---
Author Organization [facility] Address [address] [place] [address] Care Team Providers Care Hearing Officer Name Role Phone Phys, Self-Refer Or No Pcp/Referring Primary Car e Provider Unavailable Wesly Silva MD Unavailable [phone] Allergies Active AllergyReactionsCriticalityNoted DateCommentsPenicillin VUnknown 03/15/2021 Medications MedicationSigDispense QuantityRefillsLast FilledStart DateEnd DateStatus coenzyme Q10 100 mg capsule Take 100 mg by mouth once daily.Active ofiaqamjutpd-jlg-nq-co Q10 (aquADEKs) 100-350-5 mcg-mcg-mg chewable tablet Chew [...] 30 mL 310/ctive Active Problems ProblemNoted DateDiagnosed CjqoUjjrfeod25/13/2023 Family History Medical HistoryRelationNameCommentsCancerFatherAlzheimer's diseaseMother CataractsMotherThyroid diseaseMotherAnesth problemsNeg HxDeep vein thrombosisNeg HxPulmonary embolismNeg HxRelationNameStatusCommentsFatherMother Social History Tobacco UseTypesPacks/DayYears UsedDateSmoking Tobacco: XqfcpqFkltgrogoq0377567 - 1980Smokeless Tobacco: Never Tobacco Cessation:Counseling Given: Not Answered Alcohol UseStandard Drinks/WeekCommentsNot Currently0 (1 standard drink = 0.6 oz pure alcohol)Sex and Gender InformationValueDate RecordedSex Assigned at Not on fileLegal OchZiti59/01/2022 4:15 PM EDTGender IdentityNot on fileSexual OrientationNot on file Last Filed Vital Signs Vital SignReadingTime TakenCommentsBlood Lfzonuun561/5609 12:20 PM EDT Xxqvw960404/17/2023 12:20 PM NUNPolhmfhrzyg54.5 ??C (97.7 ??F)04/17/2023 11:51 AM EDTRespiratory Pykg718504/17/2023 12:20 PM EDTOxygen Ndzmilzjtb10%04/17/2023 12:20 PM EDTInhaled Oxygen Concentration--Fdlnyu60.8 kg (165 lb)04/17/2023 9:21 AM EDT Pwmmch732.6 cm (5' 6 )04/17/2023 9:21 AM EDTBody Mass Index26.6309/ 9:21 AM EDT Plan of Treatment Health MaintenanceDue DateLast DoneCommentsHepatitis C Scltldinb1949 Pneumococcal Vaccines 50years + (1 of 1 [...] Patch Tutoplast .5 X .8 Cm - [id number] Implanted:Qty: 1 on 04/17/2023 by Esthela Middleton MD at [facility] OphthyRight: EyeRTI SURGICAL M01//[id number] / [id number] / Implant, Ahmed Clearpath Glaucoma Drainage 250mm - [id number] Implanted:Qty: 1 on 04/17/2023 by [facility]Op[facility]hyRight: EyeNEW WORLD M04//[id number] / [id number] / [id number] Insurance Care Teams Team MemberRelationshipSpecialtyStart DateEnd Date Phys, Self-Refer Or No Pcp/Referring PCP - Asfaihu21/7/22 Wesly Silva MD [address] [place] [address] [address] [place] [address] Referring RgzzkoubuZfygeenulvjqk71/7/22
--- OUTSIDE RECORDS SUMMARY | 2025-07-11 07:13 | XMS_ITS | Clinical Summary ---
Author Organization [facility] Address [address] [place], [place] [address] Care Team Providers Care Rpg Programmer Analyst Name Role Phone Unavailable Primary Care Provider [...] Take 1 tablet by mouth once daily.Active FBWCONJF-XLYFCCMIL-RSZQPRPD 3.5 MG/ML-10,000 UNIT/ML-0.1% EYE DROPS Use 1 [...] 5Active Active Problems No known active problems Social History Tobacco UseTypesPacks/DayYears UsedDateSmoking Tobacco: NeverSmokeless [...] 04/07/2025State Score (1-10), lower number is lower qgdw158Data from: https://www.neighborhoodatlas.[facility].edu/. Last address used for [address]/07/2025Sex and Gender InformationValueDate RecordedSex Assigned at BirthNot on fileLegal GkqQubo4804/06/2025 6:22 PM EDTGender Identity Not on fileSexual OrientationNot on file Last Filed Vital Signs Vital SignReadingTime TakenCommentsBlood Bmlhjrsg417/8904/07/2025 4:12 AM EDT Ecrzx733404/07/2025 4:12 AM GEEIdxonqccqum28.6 ??C (97.9 ??F)04/07/2025 12:16 AM EDTRespiratory Uuxy782804/07/2025 4:12 AM EDTOxygen Pglmqbsqmc440%04/07/2025 4:12 AM EDTInhaled Oxygen Concentration--Wgkaex33.1 kg (170 lb)04/07/2025 12:16 AM EDTHeight--Body Mass Index-- Plan of Treatment Health MaintenanceDue DateLast DoneCommentsAnxiety Idkmbidzk13/04/1967Depression Yqrtbkzpf84/04/1967Hepatitis C Laiemimbf50/04/1967Diabetes Gixyqzusa80/04/1994 Shingrix Vaccine (1 of 2)1999Advance Directive Tzprajxhzk33/01/2025 Medicare Advantage Annual Wellness Visit07/21/2024ovid-19 Vaccine ( season)503/11/2023, 03/21/2023, 01/01/2021, Additional history exists DTaP,Tdap,Td Vaccine (2 - Td or Tdap)2021Pneumococcal Vaccine: 50+Odjnecqyv73/25/2020, 04/01/2016RSV SmxmfidEfrshrfdg77/25/2023Influenza HasrpusYmmddnexn36/18/2025, 03/08/2024, 03/29/2023, Additional history exists Insurance
--- OUTSIDE RECORDS SUMMARY | 2025-07-11 07:14 | XMS_ITS | Patient Health Record ---
Author Organization [facility] in [place] Address [address] [place] [address] Care Team Providers Care Rib Sawyer Name Role Phone Taz Nelson Primary Care Provider Allergies Allergen (clinical drug ingredient) Drug/Non Drug Allergy documented on EMR Reaction Allergy Type Onset Date Status PenicillinUnknownDrug AllergyActive Results Component Value Reference Range Notes CBC AUTO DIFF Reviewed date:06/11/2025 08:47:26 PM Interpretation: Performing Lab: Notes/Report: [facility] , White Blood Count 4.1 4.0-11.0 10 3/uL Red Blood Count4.564.70-6.10 10 6/hNXwbmklkcxx07.814.0-18.0 g/uAUvliveirdu43.6 42.0-54.0 %Mean Corpuscular Drirfq55.680.0-94.0 fLMean Corpuscular Hemoglobin 32.525.9-34.0 pgMean Corpuscular HGB Conc33.929.9-35.2 g/dLRed Cell Distribution Width14.611.0-15.0 %Platelet Cydta292367-945 10 3/uLMean Platelet Volume9.39.5- 13.5 fLNeutrophils Percent Auto53.743.0-75.0 %Lymphocytes Percent Auto34.420.5- 60.0 %Monocytes Percent Auto8.81.7-12.0 %Eosinophils Percent Auto2.20.9-7.0 % Basophils Percent Auto0.70.2-2.0 %Immature Granulocytes Pct Auto0.20.0-0.5 % Neutrophils Absolute Auto2.21.4-6.5 10 3/uLLymphocytes Absolute Auto1.41.2-3.8 10 3/uLMonocytes Absolute Auto0.40.3-0.8 10 3/uLEosinophils Absolute Auto0.10.0- 0.7 10 3/uLBasophils Absolute Auto0.00.0-0.1 10 3/uLImmature Granulocytes Abs Auto0.010.00-0.03 10 3/uLPerforming Lab:see noteML - [facility] LB FREE T3 Reviewed date:06/11/2025 08:47:26 PM Interpretation: Performing Lab: Notes/Report: [facility] ,Free T31.942.18-3.98 pg/mLPerforming Lab:see [facility] GLYCOHEMOGLOBIN A1C Reviewed date:06/11/2025 08:47:26 PM Interpretation: Performing Lab: Notes/Report: [facility] ,Glycohemoglobin A1C5.34.5-6.2 % ADA RECOMMENDED LIMIT 4.0 - 6.0 ADA THERAPEUTIC TARGET < 7.0 ACTION SUGGESTED > 7.0 Estimated Average Iepnfbq883Homdaedjdk Lab:see note - [facility] LB LIPID PROFILE Reviewed date:06/11/2025 08:47:26 PM Interpretation: Performing Lab: Notes/Report: [facility] ,Dgxmrapugbyri75<=150 mg/dFAsbzoxwhcnh486<=200 mg/dLHDL Jpexygmebgg7585-82 mg/dL <40 mg/dl - HIGH CARDIOVASCULAR RISK > or =60 mg/dl - LOW CARDIOVASCULAR RISK LDL Cholesterol Ltwxcdskqt25.2 130-159 mg/dl BORDERLINE HIGH >190 mg/dl VERY HIGH 100-129 mg/dl NEAR OR ABOVE OPTIMAL <100 mg/dl OPTIMAL 160-189 mg/dl HIGH VLDL CHOLESTEROL6.8Chol HDL Ratio3.3 3.3 - 4.4 LOW RISK >11.0 HIGH RISK 7.1 - 11.0 MODERATE RISK 4.4 - 7.1 AVERAGE RISK Performing Lab:see [facility] LBPROF 14(COMP METB) Reviewed date:06/11/2025 08:47:26 PM Interpretation: Performing Lab: Notes/Report: [facility] ,Ivuuis927995-230 mmol/LPotassium4.03.5-5.1 mmol/ODwwewvvt16615-487 mmol/LCarbon Tfiiuxz28.421.0-32.0 mmol/LAnion Gap10.5Vwelogo8079-913 mg/dLBlood Urea Nitrogen 17.07.0-18.0 mg/dLCreatinine0.750.70-1.30 mg/dLEstimated GFR ( Shu>60 >=60 mL/min/1.73m 2Estimated GFR (Non- Corinne>60>=60 mL/min/1.73m 2BUN Creatinine Ratio22.1Kuaefgp1.18.5-10.1 mg/dLBilirubin Total0.90.2-1.0 mg/dL Aspartate Amino Kxrbumzjdnw2964-21 U/LAlanine Jamuvmpfzdoynvud2987-18 U/L Alkaline Lpfbzbgkqfe60796-614 U/LTotal Protein7.66.4-8.2 g/dLAlbumin Level4.0 3.4-5.0 g/dLGlobulin3.6Albumin Globulin Ratio1.1Performing Lab:see noteML - [facility] LBPSA SCREENING Reviewed date:06/11/2025 08:47:26 PM Interpretation: Performing Lab: Notes/Report: [facility] ,Prostate Specific Antigen Rbvf151.07<=4.00 ng/mLPerforming Lab:see noteML - [facility] LBT4 Reviewed date:06/11/2025 08:47:26 PM Interpretation: Performing Lab: Notes/Report: [facility] ,T4 Thyroxine6.404.50-12.10 ug/dLPerforming Lab:see noteML - [facility] LBTSH Reviewed date:06/11/2025 08:47:26 PM Interpretation: Performing Lab: Notes/Report: [facility] ,Thyroid Stimulating Hormone6.3900.358-3.740 uIU/mLPerforming Lab:see noteML - [facility] LBURIC ACID SERUM Reviewed date:06/11/2025 08:47:26 PM Interpretation: Performing Lab: Notes/Report: [facility] ,Uric Acid4.33.5-7.2 mg/dLPerforming Lab:see noteML - [facility] LB PTT Reviewed date:07/04/2025 07:12:30 PM Interpretation: Performing Lab: Notes/Report: [facility] ,Partial Thromboplastin Time27.622.3-36.2 secPerforming Lab:see note - [facility] LBProthrombin Time INR Reviewed date:07/04/2025 07:12:30 PM Interpretation: Performing Lab: Notes/Report: [facility] ,Prothrombin Time10.99.0-11.6 secINR1.04 2.0-3.0 CONDITIONS NOT LISTED BELOW 2.5-3.5 RECURRENT THROMBOSIS DESIRED INR: 2.5-3.5 FOR PROSTHETIC HEART VALVE REPLACEMENT Performing Lab:see noteML - [facility] LB Reason For Referral Diagnosis 1 PSA elevation (R97.2 0) Referral Organization [facility] Referring Provider First Name Taz Referring Provider Last Name Omar Referring Provider [facility] Referred Provider Edvin Tierney Referred Provider Specialty Urology Referral Priority Routine Diagnosis 1 Prostate cancer (C61 ) Referral Organization [facility] Referring Provider First Name Taz Referring Provider Last Name Omar Referring Provider [facility] Referred Organization [facility] Referred Provider Yulissa Keita Referred Address [address],[place], [place],[address], Referred Provider Specialty Hematology/O ncology Referral Priority Routine Medications Medication SIG (Take, Route, Frequency, Duration) Notes Start Date End Date Status Brimonidine Tartrate 0.2 % Ophthalmic; Duration: 75 Days ClkaksCnneyopi-Piissirii-Wgqqteia 3.5-01241-8.1Ophthalmic; Duration: 50 Days ActiveRocklatan 0.02-0.005 %PLACE 1 DROP INTO LEFT EYE EVERYDAY AT BEDTIME DIRECTED Ophthalmic; Duration: 75 DaysActiveLevothyroxine Sodium 50 MCGTAKE 1 TABLET BY MOUTH EVERY DAY IN THE MORNING ON EMPTY STOMACH; Duration: 90 days ActivevalACYclovir HCl 1 GMTAKE ONE TABLET BY [...] alcohol in the p ast year? No Udbaqc5SviwqeqwbpldhvPmjqcmfm Problems Problem Type SNOMED Code ICD Code Onset Dates Problem Status W/U Status Risk Notes Problem Hypothyroidism (23322913) Hypothyroidism (E03.9) ActiveconfirmedProblemMalignant tumor of prostate (584923964)Prostate cancer (C61)ActiveconfirmedProblemGlaucoma (92010975)Glaucoma (H40.9)Activeconfirmed ProblemHerpes infection (34440491)Herpes infection (B00.9)Activeconfirmed Vital Signs Blood pressure diastolic 72 mm Hg 06/15/2025 Opnxbs58 in06/15/2025lood pressure nguhmjpn129 mm Hg06/15/20255864Gzahhu233.0 lbs 06/15/2025BMI24.33 kg/m206/15/2025 Encounters Encounter Location Date Provider Diagnosis [address] [address] 06/11/2025 Taz Hoy Hypothyroidism E03.9 and PSA elevation R97.[address] [address] 06/28/2025 Taz Hoy Prostate cancer C61 [address] [address] 07/07/2025 Taz Hoy [address] [address] 06/03/2025Doug HoyHerpes infection B00.[address] [address]/26/2025Doug HoyProstate cancer C61 Assessments Encounter Date Diagnosis (ICD Code) Assessment Notes Treatment Notes Treatment Clinical Notes Section Notes 06/03/2025 Herpes infection (ICD-10 - B00.9 ) 06/15/2025Prostate cancer (ICD-10 - C61)06/11/2025Hypothyroidism (ICD-10 - E03.9)06/11/2025PSA elevation (ICD-10 - R97.20)06/28/2025Prostate cancer (ICD-10 - C61) Plan Of Treatment Pending Test Test Name Order Date HEMOGLOBIN A1C (GLYCO) 06/03/2025 LIPID PANEL (CHOL/TRIG/HDL/LDL) 06/03/20 25 URIC ACID 06/03/2025 PET/CT B50-TWBD (Pylarify) 06/28/[address] SKULL BASE MID [...] Date [employer] MEDICARE ADV PLAN [address] [address] [place] [address] [id number] Miya LEVY - patient is the insured Medical (General) History Medical History History ICD Code Glaucoma H40.9 Surgical History Surgery Date(Month/Year) Colonoscopy- Polyp Removal
== END 2025-07-11 07:11 | disposition home or self-care (01) ==
LOC: PST 07:10
PROVIDERS: PCP Family Medicine; Visit Provider Urology
DX: Z01.818 Encounter for other preprocedural examination (principal); R97.20 Elevated prostate specific antigen [PSA]